=== PATIENT | female | born 1995 | race Caucasian/White ===

== ENCOUNTER 2017-03-21 22:35 | Inpatient (IN) | payer MEDICAID ==
[~2017-03-21] VITALS: Ht 151.1 cm; Wt 67.6 kg
[2017-03-21 22:56] VITALS: Ht 151.1 cm; Wt 67.6 kg
[2017-03-21 22:57] VITALS: BP 116/57; PULSE 70; RESP 18
[2017-03-21] MEDS ORDERED: PREN-93 PO (23:01)
--- NOTE | 2017-03-22 01:10 | TRIAGE ---
OB Triage Datetime Report Generated by CPN: 03/22/2017 01:10 Datetime: 03/22/2017 23:40 Stage of : OB Triage Datetime: 03/22/2017 00:45 Stage of : OB Triage Datetime: 03/22/2017 00:41 Stage of : OB Triage Vaginal Exam Dilatation (cms): 3.0 Effacement (%): 70 Station: -2 Exam By: MICHELLE CALDERÓN Membrane Status: Intact Datetime: 03/21/2017 23:14 Stage of : OB Triage Datetime: 03/21/2017 23:09 Stage of : OB Triage Maternal Assessment Level of Consciousness: Fully Conscious DTR's/Clonus: DTRs 2+; No Clonus Headache: Denies Blurred Vision: No Respiratory Effort: Unlabored; Regular Rhythm; Equal Expansion Breath Sounds, Left: Clear and Equal Breath Sounds, Right: Clear and Equal Nausea/Vomiting: Denies RUQ Epigastric Pain: Denies Lower Extremities Edema: None Upper Extremities Edema: None Facial Edema: None Temperature Route: Oral Fall Risk Assessment History of Falling: (0) No Secondary Diagnosis: (0) No Ambulatory Aid: (0) Bedrest/Nurse Assist IV Therapy: (0) No Gait: (0) Normal/Bedrest/Immobile Mental Status: (0) Oriented to Own Ability Fall Score: 0 Fall Risk Score Definition: No Risk: No action required Labor Evaluation Frequency: 5-6 Monitor Mode: External Duration (sec)2399: 60-80 Quality: Mild Resting Tone [place]: Relaxed Heart Rate FHR Baseline Rate: 125 Monitor Mode: External US Variability: Moderate 6-25 bpm Accelerations: 15X15 Decelerations: None Category: Category I Pain Assessment Pain Scale: 4 Pain Presence: Intermittent Pain Type: Contraction Pain Location: Abdomen Pain Goal: 3 Vaginal Exam Dilatation (cms): 3.0 Effacement (%): 70 Station: -3 Exam By: MICHELLE CALDERÓN Datetime: 03/21/2017 23:07 Time of Arrival: 03/21/2017 22:32 EGA: 39.4 Arrived By: Wheelchair Arrived From: Home Chief Complaint: PT C/O VAGINAL PRESSURE AND ABDOMEN PAIN Movement: Present Contractions: Irregular Time Contractions Began: 03/20/2017 23:00 Rupture of Membranes: Denies Vaginal Bleeding: None Vaginal Discharge: Denies Recent Sexual Intercouse: Denies Abdominal Trauma: Not Applicable Patient Complaints: Contractions Additional Patient Complaints: TOCO AND EFM APPLY, SVE, MONITOR FOR UCs AND FHR KARMEN LAWRENCE
[2017-03-22] MEDS ORDERED: CARBOPROST 250 MCG INJ IM PRN (01:30)
[2017-03-22] MEDS ORDERED: OXYTOCIN 30 UNITS/LR 500 ML IV PRN (01:30)
[2017-03-22] MEDS ORDERED: OXYTOCIN 30 UNITS/LR 500 ML IV SCH ×3 (01:30→10:00)
[2017-03-22] MEDS ORDERED: IBUPROFEN 600 MG TAB PO PRN (01:30)
[2017-03-22] MEDS ORDERED: LIDOCAINE 1% (MPF) 30 ML INJ INJ PRN (01:30)
[2017-03-22] MEDS ORDERED: METHYLERGONOVINE 0.2 MG INJ IM PRN (01:30)
[2017-03-22] MEDS ORDERED: MISOPROSTOL 200 MCG TAB PR PRN (01:30)
[2017-03-22] MEDS ORDERED: BUTORPHANOL 2 MG INJ IV PRN (01:30)
[2017-03-22] MEDS: LACTATED RINGER'S 1,000 ML IV SCH ×4 (01:57→19:01)
[2017-03-22 02:05] LABS: BASOPHILS % 0.5 % (0.0-2.0); EOSINOPHILS % 0.6 % (0.0-7.0); HEMOGLOBIN 9.5 g/dl (12.0-16.0); LYMPHOCYTES # 2.2 10^3/ul (0.8-2.9); LYMPHOCYTES % 34.4 % (15.0-51.0); MEAN CORPUSCULAR HEMOGLOBIN 27.7 pg (29.0-33.0); MEAN CORPUSCULAR HGB CONC 31.7 g/dl (32.0-37.0); MEAN CORPUSCULAR VOLUME 87.5 fl (82.0-101.0); MEAN PLATELET VOLUME 12.4 fl (7.4-10.4); MONOCYTE # 0.4 10^3/ul (0.3-0.9); MONOCYTES % 5.9 % (0.0-11.0); NEUTROPHILS % 58.3 % (39.0-77.0); PLATELET COUNT 187 10^3/UL (140-415); RED BLOOD COUNT 3.43 10^6/ul (4.20-5.40); RED CELL DISTRIBUTION WIDTH 14.6 % (11.5-14.5); WHITE BLOOD COUNT 6.4 10^3/ul (4.8-10.8)
[2017-03-22 02:25] LABS: INR 0.97; PROTIME 12.9 Sec (12.2-14.2)
[2017-03-22 02:26] LABS: PARTIAL THROMBOPLASTIN TIME 26.1 Sec (25.0-35.0)
[2017-03-22] MEDS: LACTATED RINGER'S 1,000 ML IV PRN ×2 (23:16→23:39)
[2017-03-22] MEDS ORDERED: FENTAnyl 2MCG/ML-ROPIV 0.2% 100 ML ONE (23:54)
[2017-03-23] MEDS: LACTATED RINGER'S 1,000 ML IV SCH (00:48)
--- NOTE | 2017-03-23 02:06 | LDN ---
Date/Time of Note Date/Time of Note DATE: 03/23/17 TIME: 02:03 Delivery Summary normal vaginal delivery Weeks of Gestation 39w2d Placenta Delivered: Spontaneously Meconium: none Episiotomy: No Perineal laceration: 0 Anesthesia type: Epidural Estimated blood loss: 200 Sponge & Needle done & correct: Yes All needle counts correct: Yes Any foreign bodies felt in the: No Problems: Delivery Information Sex Infant Sex: male Apgars 1 Minute: 8 5 Minute: 9 Suctioning Nose & mouth suctioned at cecilia: Yes Delee suction performed: No Umbilical Cord Umbilical cord with: 3 Vessels Cord Blood was obtained: Yes Mother & Baby Disposition Disposition Mom & Baby to Maternity; Good: Yes Mom transferred to: Other () Baby to NICU: No KRISTI TIAN MD Mar 23, 2017 02:06
--- NOTE | 2017-03-23 02:19 | HP ---
Date/Time of Note Date/Time of Note DATE: 03/23/17 TIME: 02:06 OB - History Hx of Present Free Text/Dictation 22 y.o at 39w2d in early labor with u.c 2-4 min with intact membrane. had Hx of chlamydia ,treated during (in september) initial VE 2cm /60%/-1 admitted for expectant management. last delivery 9lb took 4hr Chief Complaint: UC's Estimated Due Date: Mar 27, 2017 : 2 Para: 1 Spontaneous : 0 Therapeutic : 0 Care: Limited Care Ultrasounds: Normal mid trimester US Obstetrical Complications: None Medical Complications: None Past Family/Social History * Past Medical, Surgical, Family and Obstetric Histories reviewed from chart. Blood Type: O+ Rubella: immune RPR/VDRL: Negative GBS Status: Negative HBsAG: Negative OB Admission Exam Vital Signs Vital Signs Vital Signs Date Time Temp Pulse Resp B/P Pulse Ox O2 Delivery O2 Flow Rate FiO2 03/21/17 22:57 98.0 70 18 116/57 Room Air Physical Exam HEENT: WNL Heart: Rhythm Normal Lungs: Clear, Equal Abdomen: WNL Extremities: Normal Reflexes: Normal Cervical Dilatation: 2cm Effacement: Other (60%) Station: -1 Membranes: Intact Amniotic Fluid: Unevaluable Heart Rate: 120's Accelerations: Accelerations Present Decelerations: No Decelerations Varibility: Moderate Contractions on Admission: < 5 Minutes Apart Intensity: Mild Last 72 hours Lab Results CBC & BMP 03/22/17 01:45 OB Assessment/Plan Other Assessment: IUP 39w2d in early labor Plan: Expectant Management Other plan: pitocin augmentation KRISTI TIAN MD Mar 23, 2017 02:17
[2017-03-23] MEDS ORDERED: LACTATED RINGER'S 1,000 ML IV* SCH (02:21)
[2017-03-23] MEDS ORDERED: CARBOPROST 250 MCG INJ IM PRN ×2 (02:30→03:30)
[2017-03-23] MEDS ORDERED: METHYLERGONOVINE 0.2 MG INJ IM PRN ×2 (02:30→03:30)
[2017-03-23] MEDS ORDERED: MISOPROSTOL 200 MCG TAB PR PRN ×2 (02:30→03:30)
[2017-03-23] MEDS ORDERED: OXYTOCIN 30 UNITS/LR 500 ML IV PRN ×2 (02:30→03:30)
[2017-03-23 03:20] VITALS: BP 108/58; PULSE 74; RESP 18
[2017-03-23] MEDS ORDERED: OXYCODONE/ASPIRIN (4.88/325) TAB PO PRN ×2 (03:30)
[2017-03-23] MEDS ORDERED: ZOLPIDEM 5 MG TAB PO PRN (03:30)
[2017-03-23] MEDS ORDERED: BENZOCAINE 20% 56 ML SPRAY TOP PRN (03:30)
[2017-03-23] MEDS ORDERED: LANOLIN 7 GM TUBE TOP PRN (03:30)
[2017-03-23] MEDS ORDERED: WITCH HAZEL/GLYCERIN PAD PR PRN (03:30)
[2017-03-23 03:47] VITALS: BP 110/56; PULSE 80; RESP 18
[2017-03-23 04:00] VITALS: BP 112/53; PULSE 69; RESP 18
[2017-03-23] MEDS: IBUPROFEN 600 MG TAB PO SCH ×3 (05:49→18:02)
[2017-03-23 08:00] VITALS: BP 106/56; PULSE 76; RESP 17
[2017-03-23] MEDS: SENNA/DOCUSATE NA (8.6MG/50MG) TAB PO SCH ×2 (09:44→20:37)
[2017-03-23 12:00] VITALS: BP 110/51; PULSE 80; RESP 17
[2017-03-23 20:30] VITALS: BP 112/60; PULSE 74; RESP 18
[2017-03-24 04:00] VITALS: BP 105/80; PULSE 69; RESP 18
[2017-03-24] MEDS: IBUPROFEN 600 MG TAB PO SCH ×4 (06:12→17:35)
[2017-03-24 08:00] VITALS: BP 99/56; PULSE 78; RESP 16
[2017-03-24] MEDS: SENNA/DOCUSATE NA (8.6MG/50MG) TAB PO SCH ×2 (09:35→21:58)
[2017-03-24 10:17] LABS: BASOPHIL # 0.1 10^3/ul (0.0-0.1); BASOPHILS % 0.6 % (0.0-2.0); EOSINOPHILS # 0.2 10^3/ul (0.0-0.5); EOSINOPHILS % 1.7 % (0.0-7.0); HEMATOCRIT 30.8 % (37.0-47.0); HEMOGLOBIN 9.9 g/dl (12.0-16.0); LYMPHOCYTES # 2.2 10^3/ul (0.8-2.9); LYMPHOCYTES % 22.8 % (15.0-51.0); MEAN CORPUSCULAR HEMOGLOBIN 27.8 pg (29.0-33.0); MEAN CORPUSCULAR HGB CONC 32.1 g/dl (32.0-37.0); MEAN CORPUSCULAR VOLUME 86.5 fl (82.0-101.0); MEAN PLATELET VOLUME 12.8 fl (7.4-10.4); MONOCYTE # 0.5 10^3/ul (0.3-0.9); MONOCYTES % 5.2 % (0.0-11.0); NEUTROPHIL # 6.6 10^3/ul (1.6-7.5); NEUTROPHILS % 69.4 % (39.0-77.0); PLATELET COUNT 174 10^3/UL (140-415); RED BLOOD COUNT 3.56 10^6/ul (4.20-5.40); RED CELL DISTRIBUTION WIDTH 14.6 % (11.5-14.5); WHITE BLOOD COUNT 9.6 10^3/ul (4.8-10.8)
[2017-03-24 16:00] VITALS: BP 99/61; PULSE 71; RESP 19
[2017-03-24 20:00] VITALS: BP 108/58; PULSE 73; RESP 18
[2017-03-25] MEDS: IBUPROFEN 600 MG TAB PO SCH ×3 (01:08→11:20)
[2017-03-25 04:00] VITALS: BP 90/55; PULSE 69; RESP 18
[2017-03-25 07:50] VITALS: BP 97/54; PULSE 73; RESP 16
[2017-03-25] MEDS: SENNA/DOCUSATE NA (8.6MG/50MG) TAB PO SCH (08:26)
[2017-03-25] MEDS ORDERED: DIPHTH/TET/ACEL PERTUSS (ADULT) 0.5 ML VIAL IM* ONE (09:00)
--- NOTE | 2017-03-25 14:52 | PD.PPDC ---
[employer] Discharge Instruction Diagnosis Final Diagnosis: s/p normal vaginal celivery Condition Patient Condition: Stable Diet Diet: Resume Regular Diet Activity/Restrictions Activity: May Shower Restrictions: No Lifting No Sexual Activity Nothing in the Vagina No Peter No Tampons, douche Follow-up Follow-up with Physician: 2, Week/Weeks Return to clinic for DESIGN SPECIALIST Instructions: Fever greater than 101 Chills Worsening abdominal pain Excessive Vaginal Bleeding More than 2 pads per hour Unable to tolerate diet OB Instructions: Breast Tenderness Depression Blurried Vision Headache KRISTI TIAN MD Mar 25, 2017 14:52
--- NOTE | 2017-03-25 14:54 | DS ---
Date/Time of Note Date/Time of Note DATE: 03/25/17 TIME: 14:53 Obstetrical Discharge Record Final Diagnosis Final Diagnosis: Term delivered Vaginal Delivery Obstetrical Delivery: Spontaneous Complications Augmentation: Yes Rupture of Membranes: No Condition on Discharge Physical Assessment Last Vitals: vss afebrile Voiding: Yes Bowel Movement: Yes Breast: Soft, non-tender Calf Tenderness: No Patient Condition: Stable KRISTI TIAN MD Mar 25, 2017 14:54
[2017-03-25 16:06] VITALS: BP 111/61; PULSE 70; RESP 16
== END 2017-03-25 16:55 | disposition home or self-care (01) | DRG 775 ==
LOC: OBT 22:35 → L-D 22:38 → OBT 03-22 00:45 → PP1 03-23 03:18
PROVIDERS: ADMIT Obstetrics & Gynecology; ATTEND Obstetrics & Gynecology
PROC: 10E0XZZ Delivery of Products of Conception, External Approach (ICD-10-PCS; principal; 2017-03-23)
DX: O80 Encounter for full-term uncomplicated delivery (principal); Z37.0 Single live birth; Z3A.39 39 weeks gestation of pregnancy
CPT/HCPCS: 62319; 85025; 85610; 85730; 86592; 86900; 86901; 90715; 99464; G0463; J0595; J2590; J3010; J7120